=== PATIENT | female | born 1960 | race Caucasian/White ===

== ENCOUNTER 2021-04-10 09:05 | Emergency (ER) | payer OTHER, SELFPAY ==
--- NOTE | ~2021-04-10 | CT_ITS ---
EXAMINATION: CT chest abdomen pelvis w con DATE: 04/10/2021 11:47 INDICATION: Chest pain. Blood in stool. TECHNIQUE: Computed tomography (CT) of the chest, abdomen, and pelvis was performed with 100 mL Omnip aque 350 intravenous contrast. Automated exposure control and iterative reconstruction technique were employed. The dose-length product was 548.44 mGy-cm. COMPARISON: CT abdomen 08/26/2016 FINDINGS: CHEST CT: The lungs demonstrate minimal atelectasis. No pleural effusion. The heart size is normal. There are c oronary artery calcifications. No pericardial effusion. There is wall thickening of the distal esopha trista. There is a small sliding hiatal hernia. There is mild thoracic spondylosis. ABDOMEN/PELVIS CT: There is diffuse hepatic steatosis. There are cysts in the liver measuring up to 5 mm. The gallbladde r, spleen, pancreas, adrenal glands, and kidneys are normal. There is prominent fat in the inguinal c anals that may be hernias. There are no dilated loops of bowel. The appendix is normal. There are no pathologically enlarged lymph nodes. There is no free intraperitoneal fluid. There is mild lumbar spo ndylosis. IMPRESSION: 1. Small sliding hiatal hernia. 2. Wall thickening of the distal esophagus, likely esophagitis. 3. Diffuse hepatic steatosis. 4. Prominent fat in the inguinal canals that may be hernias. Reviewed, dictated and finalized at location A.
[2021-04-10 09:10] VITALS: BP 117/67; PULSE 90; RESP 16; TEMP 36.7; O2SAT 100
--- NOTE | 2021-04-10 09:40 | ECG_ITS ---
Measurements Intervals [place] Rate: 91 P: 56 [place]: 154 QRS: 48 QRSD: 80 T: 6 QT: 359 QTc: 443 Interpretive Statements SINUS RHYTHM NONSPECIFIC ST & T-WAVE ABNORMALITY- INFERIOR LEADS BASELINE WANDER- I, III, AVR, AVL, AVF BORDERLINE ECG Electronically Signed On 04-10-2021 13:27:12 CDT by Nael Montoya D.O.
[2021-04-10 09:57] LABS: Basophils Absolute Auto 0.01 K/mm3 (0.00-0.10); Basophils Percent Auto 0.2 % (0.0-1.0); Eosinophils Percent Auto 1.8 % (1.0-6.0); Hemoglobin 7.6 g/dL (12.0-15.0); Immature Granulocyte Absolute 0.02 K/mm3 (0.00-0.00); Immature Granulocyte Percent A 0.4 % (0.0-0.0); Lymphocytes Absolute Auto 2.19 K/mm3 (1.10-4.50); Lymphocytes Percent Auto 40.3 % (18.0-42.0); Mean Corpuscular Hemoglobin 30.3 pg (27.0-31.0); Mean Corpuscular Volume 91.6 fL (78.0-102.0); Mean Platelet Volume 8.3 fl (9.2-11.8); Monocytes Absolute Auto 0.27 K/mm3 (0.10-0.90); Neutrophils Absolute Auto 2.9 K/mm3 (1.7-7.2); Neutrophils Percent Auto 52.3 % (50.0-70.0); Platelet Count Result 208 K/mm3 (150-420); Red Blood Count 2.51 M/mm3 (4.20-5.40); White Blood Count 5.4 K/mm3 (4.8-10.8)
[2021-04-10 10:11] LABS: D Dimer 0.37 mg/L (0.19-0.50)
[2021-04-10 10:13] VITALS: BP 94/66; PULSE 88; O2SAT 97
[2021-04-10 10:22] LABS: Alanine Aminotransferase 23 U/L (14-59); Albumin Level 3.1 g/dL (3.4-5.0); Alkaline Phosphatase 47 U/L (46-116); Anion Gap 12 mmol/L (8-16); Aspartate Amino Transferase 14 U/L (15-37); Bilirubin,Total 0.2 mg/dL (0.00-1.00); Blood Urea Nitrogen 38 mg/dL (7-18); Carbon Dioxide 23 mmol/L (21-32); Chloride 104 mmol/L (98-108); Estimated Glomerular Filt Rate > 60; Glucose 134 mg/dL (70-99); Osmolality Calculated 299 mOsm/kg (285-295); Potassium 3.7 mmol/L (3.5-5.1); Sodium 139 mmol/L (136-145); Thyroid Stimulating Hormone 1.37 uIU/mL (0.36-3.74); Total Protein 5.9 g/dL (6.4-8.2)
[2021-04-10 10:23] LABS: Troponin I < 4.0 ng/L (0.00-60.4)
[2021-04-10 10:33] LABS: Occult Blood Positive (Negative)
[2021-04-10] MEDS: PANTOPRAZOLE SODIUM IV 40 MG VIAL IV PUSH (11:30)
[2021-04-10 11:33] LABS: Partial Thromboplastin Time 23.9 SEC (23.90-30.70); Prothrombin Time 10.3 Seconds (9.50-12.10)
[2021-04-10 11:49] VITALS: BP 121/47; PULSE 98; O2SAT 100
--- NOTE | 2021-04-10 12:39 | PC.NURSE ---
[facility] CALLED FOR POSSIBLE TRANSFER
[2021-04-10] MEDS: LACTATED RINGERS 1,000 ML 500 ML IV CONT (12:48)
--- NOTE | 2021-04-10 12:58 | ED.DIZZY ---
HPI - Dizziness General Chief Complaint: Dizziness Stated Complaint: DIZZY Time Seen by Provider: 04/10/21 09:15 Source: patient Mode of arrival: ambulatory Limitations: no limitations History of Present Illness HPI Narrative: Patient comes in complaining of presyncope. She has felt weak and presyncopal for some time, at least the last week, and had an episode today which was more severe presyncopal episode. She comes in now with these complaints. She denies any fever or chills. She has had complaints of dark stool. MD elicited complaint: lightheadedness and near syncope Pertinent past history: GI bleed Onset (ago): minute(s) Timing: sudden onset Severity: severe Description: lightheadedness, off-balance and near-syncope Context: exertion and at rest History of similar symptoms: Yes Exacerbating factors: movement/ambulation and change in body position Relieving factors: rest Associated symptoms: denies other symptoms Related Data Home Medications Medication Instructions Recorded Confirmed lisinopril-hydrochlorothiazide 1 tablet PO DAILY 04/10/21 04/10/21 metformin 500 mg PO BID 04/10/21 04/10/21 oxycodone 5 mg PO PRN 04/10/21 04/10/21 oxycodone myristate [Xtampza ER] 13.5 mg PO BID 04/10/21 04/10/21 pregabalin 200 mg PO BID 04/10/21 04/10/21 Allergies Allergy/AdvReac Type Severity Reaction Status Date / Time amoxicillin Allergy Mild RASH Verified 04/10/21 16:13 Penicillins Allergy Unknown Rash Verified 04/10/21 16:13 Review of Systems Constitutional: Constitutional: Reports no additional constitutional complaints Eyes: Eyes: Reports no additional eye complaints ENT: Reports system reviewed and no additional complaints, except as documented Cardiovascular: Cardiovascular: Reports no additional cardiovascular complaints Respiratory: Respiratory: Reports no additional respiratory complaints Gastrointestinal: Gastrointestinal: Reports no additional gastrointestinal complaints Genitourinary: Genitourinary: Reports no additional female genitourinary complaints Musculoskeletal: Musculoskeletal: Reports no additional musculoskeletal complaints Integumentary/Breasts: Skin/Breast: Reports system reviewed and no additional complaints, except as docu Neurologic: Reports system reviewed and no additional complaints, except as documented Psychiatric: Psychiatric: Reports anxiety Endocrine: Endocrine: Reports no additional endocrine complaints Hematologic/Lymphatic: Hematologic/Lymphatic: Reports no additional hematologic/lymphatic complaints Allergic/Immunologic: Allergic/Immunologic: Reports no additional allergic/immunologic complaints PMFSH Past Medical History Medical History Chronic jaw pain Diabetic peripheral neuropathy Hypertension Type 2 diabetes mellitus Surgical History Surgical History History of 2 sections History of mandibular surgery Left job replacement surgery. Family History Family History Son Type 1 diabetes Mother Coronary artery disease Father Parkinsons disease Pacemaker Social History Social History Social History: The patient is and lives in her own home in [place]. 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 Smokes approximately 1/2 a pack of cigarettes a day. She drinks alcohol very rarely and in moderation. No illicit substance use. She designates her daughter, Mona Dumont, as her surrogate decision maker and she wishes to be a full code. Smoking packs per day: 0.5 Smoking cigarettes per day: 10.0 Years smoked: 45 Smoking pack-years: 22.50 Smoking status: Current every day smoker Exam Const: General: alert Orientation/consciousness: patient oriented x3 HENMT: Head: normal to inspection Ears: TM's normal bilaterally Ge
[2021-04-10 13:27] VITALS: BP 110/59; PULSE 85; RESP 14; O2SAT 98
[2021-04-10 13:35] LABS: Troponin I < 4.0 ng/L (0.00-60.4)
== END 2021-04-10 13:57 | disposition short-term general hospital (02) ==
LOC: CHSED 09:10
PROVIDERS: Emergency Provider Emergency Medicine; PCP Nurse Practitioner Adult Health
DX: K92.2 Gastrointestinal hemorrhage, unspecified (principal)
CPT/HCPCS: 36415; 71260; 74177; 80053; 82272; 84443; 84484; 85025; 85380; 85610; 85730; 93005; 96361; 96374; 99285; C9113; J7120; Q9967

== ENCOUNTER 2021-04-10 15:03 | Inpatient (IN) | payer OTHER, SELFPAY ==
[2021-04-10] VITALS (14 sets, daily range): BP systolic 114–130; BP diastolic 55–68; PULSE 76–100; RESP 12–20; TEMP 36.1–37.1; O2SAT 96–100; BMI 24.3
--- NOTE | 2021-04-10 15:00 | ADMGEN ---
This patient, Baylee Lacey, was admitted to IMU Room 214-01. Patient/family oriented to hospital policies and general routines including ID bracelet, bed and alarms, visiting hours, pain management, procedures, bathroom and other care routines, personal items, smoking policy, room service/diet, and visiting hours. Information on how to activate the Rapid Response Team has been discussed. Patient/Family are encouraged to report perceived risks to care and to ask questions if they do not understand what they are told or what they should do.
--- NOTE | 2021-04-10 15:30 | PM.IMHP ---
H&P: HPI History of Present Illness Date/Time: 04/10/21 15:30 Chief Complaint: GI bleed. Narrative: This is a very pleasant 60-year-old female smoker with history of GERD, gastritis and duodenitis, hypertension, and type 2 diabetes mellitus who is being directly admitted to the IMU from the emergency department at the [facility] for further treatment evaluation of a reported GI bleed. She has not felt well for approximately 1 week with symptoms including fatigue, dyspnea on exertion, and lightheadedness. Over the weekend she noticed that her stools were much darker than usual and she has past several episodes of dark, loose stools daily since that time. In addition to dyspnea on exertion, she has had discomfort in her jaw and while she does have chronic pain in her jaw from previous jaw replacement surgery, this pain is different and is more aching in nature. It seems to be present only when up ambulating and goes away with rest. In any event, she was found to have Hemoccult-positive stools and a decrease in hemoglobin from baseline on arrival to the outside hospital emergency department and she is being transferred in the setting for consultation with a special service representative. As above she has a history of GERD however she is not taking a PPI daily as her insurance company quit pain for it. She will take omeprazole approximately 2 to 3 times per week depending on how significant her symptoms become. She takes Excedrin, which contains aspirin, perhaps 2 to 3 times per month but does not take any other NSAIDs. No significant alcohol or caffeine intake. She also reports increase in stress recently. No current chest pain or shortness of breath. No nausea or vomiting. Review of Systems Review of Systems: Narrative: Twelve systems were reviewed with pertinent positives and negatives as per HPI. Weight has remained stable. No cold or flu symptoms. She denies exposure to those positive for COVID-19. No history of coronary artery disease. She has never had a stress test or cardiac catheterization. No pleuritic pain. She denies nausea, vomiting, and sweats. Except as documented, all other systems were reviewed and are negative. [facility] Past Medical History Medical History (Updated 04/10/21 @ 21:48 by Jeannie Camarillo PA-C) Chronic jaw pain Diabetic peripheral neuropathy Hypertension Type 2 diabetes mellitus Surgical History Surgical History (Updated 04/10/21 @ 21:42 by Jeannie Camarillo PA-C) History of 2 sections History of mandibular surgery Left job replacement surgery. Family History Family History (Updated 04/10/21 @ 21:43 by Jeannie Camarillo PA-C) Son Type 1 diabetes Mother Coronary artery disease Father Parkinsons disease Pacemaker Social History Social History (Updated 04/10/21 @ 21:44 by Jeannie Camarillo PA-C) Social History: The patient is and lives in her own home in [place]. 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 Smokes approximately 1/2 a pack of cigarettes a day. She drinks alcohol very rarely and in moderation. No illicit substance use. She designates her daughter, Mona Dumont, as her surrogate decision maker and she wishes to be a full code. Smoking packs per day: 0.5 Smoking cigarettes per day: 10.0 Years smoked: 45 Smoking pack-years: 22.50 Smoking status: Current every day smoker Meds Home Medications and Allergies Home Medications Medication Instructions Recorded Confirmed Type lisinopril-hydrochlorothiazide 1 tablet PO DAILY 04/10/21 04/10/21 History metformin 500 mg PO BID 04/10/21 04/10/21 History oxycodone 5 mg PO DAILY PRN 04/10/21 04/10/21 History oxycodone myristate [Xtampza ER] 13.5 mg PO BID 04/10/21 04/10/21 History pregabalin 200 mg PO BID 04/10/21 04/10/21 History Allergies Allergy/AdvReac Type Severity Reaction Status Date / Time amoxicillin Allergy Mild RASH Verified 04/10/21 16:13 Penicillins Allergy Un
--- NOTE | 2021-04-10 16:06 | WPDGICN ---
Assessment and Plan Assessment and plan (1) GIB (gastrointestinal bleeding): Code(s): K92.2 - Gastrointestinal hemorrhage, unspecified Status: Acute Assessment and Plan: most likely upper GIB, also abnormal CT scan esophagus will proceed with egd tomorrow continue with iv protonix bid (2) Acute blood loss anemia: Code(s): D62 - Acute posthemorrhagic anemia Status: Acute Assessment and Plan: continue to monitor and check h/h transfuse if hb<7 (3) Orthostatic hypotension: Code(s): I95.1 - Orthostatic hypotension Status: Acute Assessment and Plan: probably from gib, supportive care (4) Melena: Code(s): K92.1 - Melena Status: Acute Assessment and Plan: egd in am (5) Hypertension: Code(s): I10 - Essential (primary) hypertension Status: Acute Assessment and Plan: hold her BP meds GI Consult Note Consult date/time: 04/10/21 16:06 Reason for consult: melena HPI: Baylee Lacey is a 60 year old female she has history of HTN, chronic pain in jaw after surgery on Xtampxa ER who is here feeling weak and feeling like passing out after getting up for last week which progressively has gotten worse, also last 2 days noted dark tarry stools. She says that several years ago had EGD when had abdominal pain, she was told that had ulcers and briefly used PPI until her insurance did not cover it anymore. She denies taking nsaid's, only aspirin maybe twice a month for headache. She never had a colonoscopy. Hb 7.6 (2 years ago 13), BUN 38, normal creatinine. CT scan a/p reviewed that showed small sliding hiatal hernia, wall thickening of the distal esophagus, likely esophagitis, diffuse hepatic steatosis. Review of Systems Constitutional: Constitutional: Reports fatigue Eyes: Eyes: Denies blurry vision ENT: Reports Normal hearing present Cardiovascular: Cardiovascular: Denies chest pain Respiratory: Respiratory: Denies dyspnea Gastrointestinal: Gastrointestinal: Denies abdominal pain and Reports melena Genitourinary: Genitourinary: Denies hematuria Musculoskeletal: Musculoskeletal: Denies myalgias Integumentary/Breasts: Skin/Breast: Denies dry skin Neurologic: Comments: presyncope Psychiatric: Psychiatric: Reports no additional psychiatric complaints [facility] Past Medical History Medical History (Updated 04/10/21 @ 16:11 by Sergio Epstein MD) Acute blood loss anemia GIB (gastrointestinal bleeding) Hypertension Melena Orthostatic hypotension Meds Home Medications and Allergies Home Medications Medication Instructions Recorded Confirmed Type lisinopril-hydrochlorothiazide 2 tablet PO DAILY 04/10/21 04/10/21 History metformin 500 mg PO BID 04/10/21 04/10/21 History oxycodone 5 mg PO DAILY PRN 04/10/21 04/10/21 History oxycodone myristate [Xtampza ER] 13.5 mg PO BID 04/10/21 04/10/21 History pregabalin 200 mg PO BID 04/10/21 04/10/21 History Allergies Allergy/AdvReac Type Severity Reaction Status Date / Time amoxicillin Allergy Mild RASH Verified 08/13/17 15:26 Penicillins Allergy Mild Verified 08/13/17 15:26 Exam Const: General: comfortable and no acute distress HENMT: General nose exam: Normal nares present Eyes: General: appearance normal, both eyes and all related structures Neck: Neck: supple Resp: Effort & Inspection: normal respiratory effort Cardio: Rate: regular rate GI: Inspection: non-distended GI Palp: Yes Soft to palpation, No Tenderness to palpation present (GI) and No Guarding due to palpation present (GI) Auscultation: normal bowel sounds Skin: Other: pale Neuro: Speech: normal speech Motor exam (neuro): Normal motor muscle tone present throughout Extrem: General: normal to inspection Psych: Mental Status: mental status grossly normal
[2021-04-10 16:21] LABS: Hematocrit 21.1 % (37.0-47.0)
[2021-04-10 16:30] LABS: Magnesium 1.9 mg/dL (1.6-2.3)
[2021-04-10 16:32] LABS: Hemoglobin 6.9 g/dL (12.0-15.0)
[2021-04-10 17:22] LABS: Glucose Point of Care 121 mg/dl (65-105)
[2021-04-10] MEDS: SODIUM CHLORIDE 0.9% IV 250 ML 30 ML IV CONT (17:45)
[2021-04-10 18:32] LABS: Hemoglobin A1C 5.2 % (<5.7)
[2021-04-10 19:43] LABS: Hematocrit 22.3 % (37.0-47.0); Hemoglobin 7.4 g/dL (12.0-15.0)
[2021-04-10] MEDS: PANTOPRAZOLE SODIUM IV 40 MG VIAL IV PUSH (20:29)
--- NOTE | 2021-04-10 21:52 | ECG_ITS ---
Measurements Intervals [place] Rate: 76 P: 63 [place]: 180 QRS: 48 QRSD: 91 T: 47 QT: 380 QTc: 428 Interpretive Statements SINUS RHYTHM EARLY PRECORDIAL R/S TRANSITION BASELINE ARTIFACT- I, II, III, AVR BORDERLINE ECG Electronically Signed On 04-11-2021 8:46:09 CDT by Nael Montoya D.O.
[2021-04-11] VITALS (12 sets, daily range): BP systolic 119–135; BP diastolic 64–73; PULSE 68–82; RESP 14–22; TEMP 36.1–36.7; O2SAT 99–100
[2021-04-11 04:54] LABS: Hematocrit 27.1 % (37.0-47.0); Hemoglobin 9.1 g/dL (12.0-15.0); Mean Corpuscular HGB Conc 33.6 g/dl (32-36); Mean Corpuscular Hemoglobin 27.7 pg (26-34); Mean Corpuscular Volume 82.6 fl (80-100); Mean Platelet Volume 8.6 fl (7.4-10.4); Platelet Count Result 204 k/mm3 (150-375); Red Blood Count 3.28 M/mm3 (4.2-5.4); Red Cell Distribution Width 17.4 % (11.5-14.5); White Blood Count 5.3 K/mm3 (4.5-10.0)
[2021-04-11 05:11] LABS: Anion Gap 8 mmol/L (8-16); Blood Urea Nitrogen 13 mg/dL (7-17); Calcium 8.9 mg/dL (8.4-10.2); Carbon Dioxide 21 mmol/L (22-30); Chloride 109 mmol/L (98-107); Estimated CRCL calculation 77 ml/min; Estimated Glomerular Filt Rate > 60; Glucose 124 mg/dL (65-105); Magnesium 1.9 mg/dL (1.6-2.3); Potassium 3.9 mmol/L (3.4-5.0); Sodium 138 mmol/L (137-145)
[2021-04-11 08:44] LABS: Hematocrit 27.9 % (37.0-47.0); Hemoglobin 9.4 g/dL (12.0-15.0)
[2021-04-11] MEDS: oxyCODONE HCL (*CRX) 10 MG TAB SR 12HR PO (09:28)
[2021-04-11] MEDS: PANTOPRAZOLE SODIUM IV 40 MG VIAL IV PUSH (09:29)
--- NOTE | 2021-04-11 12:23 | PM.IMPN ---
Progress Note: A&P Assessment and Plan (1) Acute upper GI bleed: Code(s): K92.2 - Gastrointestinal hemorrhage, unspecified Status: Acute (2) Gastritis and duodenitis: Code(s): K29.90 - Gastroduodenitis, unspecified, without bleeding Status: Acute (3) GERD (gastroesophageal reflux disease): Code(s): K21.9 - Gastro-esophageal reflux disease without esophagitis Status: Acute (4) Chronic jaw pain: Code(s): R68.84 - Jaw pain; G89.29 - Other chronic pain Status: Acute (5) Jaw pain: Code(s): R68.84 - Jaw pain Status: Acute (6) Diabetic peripheral neuropathy: Code(s): E11.42 - Type 2 diabetes mellitus with diabetic polyneuropathy Status: Acute (7) Type 2 diabetes mellitus: Code(s): E11.9 - Type 2 diabetes mellitus without complications Status: Acute (8) Hypertension: Code(s): I10 - Essential (primary) hypertension Status: Acute (9) Melena: Code(s): K92.1 - Melena Status: Acute (10) Orthostatic hypotension: Code(s): I95.1 - Orthostatic hypotension Status: Acute (11) Tobacco abuse: Code(s): Z72.0 - Tobacco use Status: Acute Additional Plan Patient admitted for acute upper GI bleed and acute blood loss anemia. Patient has received 1 unit of PRBCs and her hemoglobin remained stable greater than 9. She is scheduled for EGD today. Continue current care May shower Advance diet when cleared by GI NS at 75 cc/hour Transfer to medical-surgical floor Dispo home after cleared by GI Time Spent With Patient Time with patient: 25 - 35 minutes Subjective Date/time seen: 04/11/21 12:23 Patient doing okay has no physical complaints at the time of my interview. She does however requested be able to shower and also eat a soon as possible. Patient is advised that she can eat as soon as she is cleared by GI. Also, now that her hemoglobin is greater than 9 she should be able to shower safely with assistance. Her mother is bedside all questions are answered. Exam Narrative: Exam Narrative: General: Well-developed female sitting up in bed no distress. Weight: 66.3 kilograms. BMI: 24.3. HEENT: Wearing glasses. EOMI. Sclerae anicteric. Conjunctiva are pale. Oral mucosa moist. Neck: Supple. No JVD. Respiratory: Lungs are clear to auscultation bilaterally. Cardiovascular: Regular rate and rhythm with S1-S2. Gastrointestinal: Abdomen is soft, nontender, and nondistended with positive bowel sounds. Skin: Warm and dry. Generalized pallor. Extremities: No cyanosis, clubbing, or edema. Radial and pedal pulses intact. Neurological: Alert. Cranial nerves 2-12 are grossly intact. No gross focal deficits to casual conversation. Psychiatric: Pleasant and cooperative with normal mood and affect. Judgment and insight intact. Objective Data Vital Signs Vital Signs: Vital Signs - 24 hr 04/10/21 15:00 04/10/21 16:00 04/10/21 18:00 Temperature 98.7 F Pulse Rate 82 93 95 Respiratory Rate 12 Blood Pressure 124/55 L Pulse Oximetry 100 04/10/21 18:35 04/10/21 18:50 04/10/21 19:50 Temperature 98.0 F 97.7 F 98.2 F Pulse Rate 84 85 79 Respiratory Rate 16 16 16 Blood Pressure 130/68 120/59 L 124/60 Pulse Oximetry 98 96 100 04/10/21 20:00 04/10/21 20:50 04/10/21 21:12 Temperature 98.2 F 98 F Pulse Rate 79 79 81 Respiratory Rate 16 18 Blood Pressure 117/56 L 114/58 L Pulse Oximetry 100 97 04/10/21 21:28 04/10/21 21:30 04/10/21 22:00 Temperature 97.6 F 97.0 F L Pulse Rate 100 100 77 Respiratory Rate 18 18 Blood Pressure 114/68 114/68 Pulse Oximetry 97 97 04/10/21 22:28 04/10/21 22:53 04/11/21 00:00 Temperature 98.2 F 98.0 F Pulse Rate 77 76 68 Respiratory Rate 18 20 18 Blood Pressure 122/60 121/61 Pulse Oximetry 100 99 04/11/21 02:00 04/11/21 04:00 04/11/21 06:00 Temperature 98.1 F Pulse Rate 82 73 70 Respiratory Rate 16 Blood Pressure 1
--- NOTE | 2021-04-11 12:46 | PC.NURSE ---
To GI lab for EGD procedure via stretcher accompanied by RN
[2021-04-11 12:59] LABS: Glucose Point of Care 130 mg/dl (65-105)
[2021-04-11] MEDS: LACTATED RINGERS 1,000 ML 150 ML IV CONT (13:02)
--- NOTE | 2021-04-11 13:15 | WPDANESEPPF ---
Anes - Initial Pre Proc Eval Procedure: Operation Date: 04/11/21 14:00 Proposed Procedures p Esophagogastroduodenoscopy - Sergio Epstein MD Date/Time: 04/11/21 13:15 Surgeon: Dash Salcido MD Pre Op Diagnosis: ugi bleed Patient Data Age: 60 Gender: F Height: 5 ft 5 in Weight: 65.1 kg Last Vital Signs Temp 96.9 F L 04/11/21 12:58 Pulse 68 04/11/21 12:58 Resp 16 04/11/21 12:58 BP 132/71 04/11/21 12:58 Pulse Ox 100 04/11/21 12:58 Allergies Allergy/AdvReac Type Severity Reaction Status Date / Time amoxicillin Allergy Mild RASH Verified 04/10/21 16:13 Penicillins Allergy Unknown Rash Verified 04/10/21 16:13 Home Medications Medication Instructions Recorded Confirmed Type lisinopril-hydrochlorothiazide 1 tablet PO DAILY 04/10/21 04/10/21 History metformin 500 mg PO BID 04/10/21 04/10/21 History oxycodone 5 mg PO Q6H PRN 04/10/21 04/11/21 History oxycodone myristate [Xtampza ER] 13.5 mg PO BID 04/10/21 04/10/21 History pregabalin 200 mg PO BID 04/10/21 04/10/21 History Laboratory Tests 04/10/21 04/10/21 04/10/21 16:11 16:11 16:11 WBC RBC Hgb 6.9 g/dL L* g/dL (12.0-15.0) Hct 21.1 % L % (37.0-47.0) MCV MCH MCHC RDW Plt Count MPV Sodium Potassium Chloride Carbon Dioxide Anion Gap BUN Creatinine Estim Creat Clear Calc Estimated GFR Glucose POC Capillary Glucose Hemoglobin A1c 5.2 % % (<5.7) Calcium Magnesium TSH (Reflex) Blood Type O Positive Antibody Screen Negative Crossmatch See Detail 04/10/21 04/10/21 04/10/21 16:11 16:11 16:54 WBC RBC Hgb Hct MCV MCH MCHC RDW Plt Count MPV Sodium Potassium Chloride Carbon Dioxide Anion Gap BUN Creatinine Estim Creat Clear Calc Estimated GFR Glucose POC Capillary Glucose 121 mg/dl H mg/dl (65-105) Hemoglobin A1c Calcium Magnesium 1.9 mg/dL mg/dL (1.6-2.3) TSH (Reflex) 2.830 uIU/mL uIU/mL (0.465-4.68) Blood Type Antibody Screen Crossmatch 04/10/21 04/11/21 04/11/21 19:36 04:33 04:33 WBC 5.3 K/mm3 K/mm3 (4.5-10.0) RBC 3.28 M/mm3 L M/mm3 (4.2-5.4) Hgb 7.4 g/dL L g/dL 9.1 g/dL L g/dL (12.0-15.0) (12.0-15.0) Hct 22.3 % L % 27.1 % L % (37.0-47.0) (37.0-47.0) MCV 82.6 fl fl (80-100) MCH 27.7 pg pg (26-34) MCHC 33.6 g/dl g/dl (32-36) RDW 17.4 % H % (11.5-14.5) Plt Count 204 k/mm3 k/mm3 (150-375) MPV 8.6 fl fl (7.4-10.4) Sodium 138 mmol/L mmol/L (137-145) Potassium 3.9 mmol/L mmol/L (3.4-5.0) Chloride 109 mmol/L H mmol/L (98-107) Carbon Dioxide 21 mmol/L L mmol/L (22-30) Anion Gap 8 mmol/L mmol/L (8-16) BUN 13 mg/dL mg/dL (7-17) Creatinine 0.60 mg/dL L mg/dL (0.7-1.0) Estim Creat Clear Calc 77 ml/min ml/min Estimated GFR > 60 (59 - ) Glucose 124 mg/dL H mg/dL (65-105) POC Capillary Glucose Hemoglobin A1c Calcium 8.9 mg/dL mg/dL (8.4-10.2) Magnesium 1.9 mg/dL mg/dL (1.6-2.3) TSH (Reflex) Blood Type Antibody Screen Crossmatch 04/11/21 04/11/21 08:34 12:57 WBC RBC Hgb 9.4 g/dL L g/dL
[2021-04-11] MEDS: BENZOCAINE (*SP) 60 ML SPRAY CAN (HURRICAINE) 1 SPRAY MUCOUS MEM (13:35)
--- NOTE | 2021-04-11 14:26 | PC.NURSE ---
Returned to room -post egd procedure-a/o x3- wanting to eat- denies pain- or discomfort in throat-
--- NOTE | 2021-04-11 16:23 | PC.NURSE ---
[id number]-pt wanting to go home- spoke with Dr. Delgadillo about pt concerns. Dr. Delgadillo wants pt to stay 1 more day to monitor HH / bleeding. Pt informed - pt stated she cannot stay one more day; pt wants to sign out AMA- Dr. Delgadillo updated. pt signed out AMA and discharged home-
--- NOTE | 2021-04-12 06:09 | PM.DS ---
DS: Admitting Diagnosis Admitting Diagnosis Admitting Diagnosis: 1) Acute upper GI bleed: Code(s): K92.2 - Gastrointestinal hemorrhage, unspecified Status: Acute (2) Gastritis and duodenitis: Code(s): K29.90 - Gastroduodenitis, unspecified, without bleeding Status: Acute (3) GERD (gastroesophageal reflux disease): Code(s): K21.9 - Gastro-esophageal reflux disease without esophagitis Status: Acute (4) Chronic jaw pain: Code(s): R68.84 - Jaw pain; G89.29 - Other chronic pain Status: Acute (5) Jaw pain: Code(s): R68.84 - Jaw pain Status: Acute (6) Diabetic peripheral neuropathy: Code(s): E11.42 - Type 2 diabetes mellitus with diabetic polyneuropathy Status: Acute (7) Type 2 diabetes mellitus: Code(s): E11.9 - Type 2 diabetes mellitus without complications Status: Acute (8) Hypertension: Code(s): I10 - Essential (primary) hypertension Status: Acute (9) Melena: Code(s): K92.1 - Melena Status: Acute (10) Orthostatic hypotension: Code(s): I95.1 - Orthostatic hypotension Status: Acute (11) Tobacco abuse: Code(s): Z72.0 - Tobacco use Status: Acute DS: Discharge Diagnosis Discharge Diagnosis (1) Tobacco abuse: Code(s): Z72.0 - Tobacco use Status: Acute (2) Gastritis and duodenitis: Code(s): K29.90 - Gastroduodenitis, unspecified, without bleeding Status: Acute (3) GERD (gastroesophageal reflux disease): Code(s): K21.9 - Gastro-esophageal reflux disease without esophagitis Status: Acute (4) Jaw pain: Code(s): R68.84 - Jaw pain Status: Acute (5) Chronic jaw pain: Code(s): R68.84 - Jaw pain; G89.29 - Other chronic pain Status: Acute (6) Diabetic peripheral neuropathy: Code(s): E11.42 - Type 2 diabetes mellitus with diabetic polyneuropathy Status: Acute (7) Type 2 diabetes mellitus: Code(s): E11.9 - Type 2 diabetes mellitus without complications Status: Acute (8) Hypertension: Code(s): I10 - Essential (primary) hypertension Status: Acute (9) Melena: Code(s): K92.1 - Melena Status: Acute (10) Orthostatic hypotension: Code(s): I95.1 - Orthostatic hypotension Status: Acute (11) Acute blood loss anemia: Code(s): D62 - Acute posthemorrhagic anemia Status: Acute (12) GIB (gastrointestinal bleeding): Code(s): K92.2 - Gastrointestinal hemorrhage, unspecified Status: Acute DS: Summary Hospital Course Reason for hospitalization: symptomatic anemia Hospital Course: Patient admitted for acute upper GI bleed and acute blood loss anemia. Patient has received 1 unit of PRBCs and her hemoglobin remained stable greater than 9. She underwent EGD which showed gastritis and duodenitis. Postprocedure her diet was advanced as tolerated and she did very well. Unfortunately patient did not want to stay for repeat hemoglobin and left against medical advice. Status at Discharge Functional status at discharge: independent ambulation Time Spent with Patient Time attestation: Total time spent providing and/or coordinating discharge services: Exam Narrative: Exam Narrative: General: Well-developed female sitting up in bed no distress. HEENT: Wearing glasses. EOMI. Sclerae anicteric. Conjunctiva are pale. Oral mucosa moist. Neck: Supple. No JVD. Respiratory: Lungs are clear to auscultation bilaterally. Cardiovascular: Regular rate and rhythm with S1-S2. Gastrointestinal: Abdomen is soft, nontender, and nondistended with positive bowel sounds. Skin: Warm and dry. Generalized pallor. Extremities: No cyanosis, clubbing, or edema. Radial and pedal pulses intact. Neurological: Alert. Cranial nerves 2-12 are grossly intact. No gross focal deficits to casual conversation. Psychiatric: Pleasant and cooperative with normal mood and affect.
== END 2021-04-11 16:24 | disposition left against medical advice (07) | DRG 378 ==
PROVIDERS: Internal Medicine Gastroenterology; Physician Assistant; Admitting Provider Internal Medicine; PCP Nurse Practitioner Adult Health; Visit Provider Hospitalist
PROC: 0DJ08ZZ Inspection of Upper Intestinal Tract, Via Natural or Artificial Opening Endoscopic (ICD-10-PCS; CPT 43235; principal; 2021-04-11 14:00)
DX: K29.91 Gastroduodenitis, unspecified, with bleeding (principal); D62 Acute posthemorrhagic anemia; K21.01 Gastro-esophageal reflux disease with esophagitis, with bleeding; K26.4 Chronic or unspecified duodenal ulcer with hemorrhage; K22.2 Esophageal obstruction; K44.9 Diaphragmatic hernia without obstruction or gangrene; I10 Essential (primary) hypertension; I95.1 Orthostatic hypotension; F17.210 Nicotine dependence, cigarettes, uncomplicated; E11.42 Type 2 diabetes mellitus with diabetic polyneuropathy; R68.84 Jaw pain; G89.29 Other chronic pain; Z79.84 Long term (current) use of oral hypoglycemic drugs; Z79.899 Other long term (current) drug therapy; Z88.0 Allergy status to penicillin
CPT/HCPCS: 36415; 36430; 80048; 82948; 83036; 83735; 84443; 85014; 85018; 85027; 86850; 86900; 86901; 86923; 87081; 88305; 93005; A9270; C1726; C9113; J0171; J2704; J7050; J7120; P9016

== ENCOUNTER → 2021-04-27 08:12 | Outpatient (CLI) | payer OTHER, SELFPAY ==
--- NOTE | ~2021-04-27 | US_ITS ---
US abdomen complete EXAMINATION: US Abdomen Complete INDICATION: Diarrhea. History of ulcers. PROCEDURE: Realtime High Resolution abdomen ultrasound. COMPARISON: No prior studies for comparison FINDINGS: Gallbladder within normal limits. No gallstones, pericholecystic fluid, gallbladder wall t hickening or biliary dilatation. Common bile duct measures 3 mm. Liver echotexture is increased, consistent with fatty infiltration.. Pancreas within normal limits. Pancreatic tail is obscured by bowel gas. Spleen is unremarkeable. Renal echotexture is within norm al limits bilaterally without hydronephrosis, contour deforming mass or renal stone. Right kidney jaclyn sures 10.8 cm. Left kidney measures 12.5 cm. Visualized aspects of the aorta and IVC are within normal limits. Portal vein is patent. No sonograph ic Macedo's sign indicated by the technologist. IMPRESSION: 1: Hepatic steatosis. Reviewed, dictated and finalized at location A. IMPRESSION: 1: Hepatic steatosis.
== END ==
PROVIDERS: PCP Physician Assistant; Visit Provider Physician Assistant
DX: R19.7 Diarrhea, unspecified (principal); K76.0 Fatty (change of) liver, not elsewhere classified
CPT/HCPCS: 76700

== ENCOUNTER → 2021-05-15 16:24 | Outpatient (CLI) | payer OTHER, SELFPAY ==
--- NOTE | ~2021-05-15 | MM_ITS ---
EXAMINATION: MM screening ming BI w ky HISTORY: Screening mammogram, family history of breast cancer in her mother. TECHNIQUE: Craniocaudal and mediolateral oblique 3-D tomosynthesis images were obtained and synthetic 2-D images were generated. CAD analysis was submitted and interpreted. COMPARISON: 09/20/2013, 09/02/2013 BREAST PARENCHYMAL COMPOSITION: The breasts are heterogeneously dense, which may obscure small masses . FINDINGS: There is no evidence of suspicious mass, calcification, or architectural distortion to sugg est malignancy in either breast. There has been no suspicious interval change. IMPRESSION: 1. No mammographic evidence of malignancy. 2. Recommend routine screening mammography in one year. BI-RADS Category 1: Negative Reviewed, dictated and finalized at location A.
== END ==
PROVIDERS: PCP Physician Assistant; Visit Provider Physician Assistant
DX: Z12.31 Encounter for screening mammogram for malignant neoplasm of breast (principal)
CPT/HCPCS: 77063; 77067

== ENCOUNTER 2021-06-15 01:42 | Day surgery (SDC) | payer OTHER, SELFPAY ==
[2021-06-05 11:48] VITALS: BMI 24.9
[2021-06-15 07:48] VITALS: BP 124/79; PULSE 77; RESP 16; TEMP 36.1; O2SAT 99; BMI 26.2
[2021-06-15] MEDS: LACTATED RINGERS 1,000 ML 150 ML IV CONT (07:52)
[2021-06-15 08:03] LABS: Glucose Point of Care 104 mg/dl (65-105)
--- NOTE | 2021-06-15 08:05 | WPDANESEPPF ---
Anes - Initial Pre Proc Eval Procedure: Operation Date: 06/15/21 08:30 Proposed Procedures p Esophagogastroduodenoscopy & Screening Colonoscopy - Sergio Epstein MD Date/Time: 06/15/21 08:05 Surgeon: Sergio Epstein MD Pre Op Diagnosis: esophagitis, gastritis Patient Data Age: 60 Gender: F Height: 1.65 m Weight: 71.4 kg Last Vital Signs Temp 36.1 C L 06/15/21 07:48 Pulse 77 06/15/21 07:48 Resp 16 06/15/21 07:48 BP 124/79 06/15/21 07:48 Pulse Ox 99 06/15/21 07:48 Allergies Allergy/AdvReac Type Severity Reaction Status Date / Time amoxicillin Allergy Mild RASH Verified 06/15/21 07:45 Penicillins Allergy Unknown Rash Verified 06/15/21 07:45 Home Medications Medication Instructions Recorded Confirmed Type lisinopril-hydrochlorothiazide 1 tablet PO DAILY 04/10/21 06/05/21 History metformin 500 mg PO BID 04/10/21 06/05/21 History oxycodone 5 mg PO Q6H PRN 04/10/21 06/05/21 History oxycodone myristate [Xtampza ER] 13.5 mg PO BID 04/10/21 06/05/21 History pregabalin 200 mg PO BID 04/10/21 06/05/21 History bupropion HCl 150 mg PO DAILY 06/05/21 06/05/21 History ergocalciferol (vitamin D2) 1,250 mcg PO WEEKLY 06/05/21 06/05/21 History ferrous sulfate 325 mg PO DAILY 06/05/21 06/05/21 History pantoprazole 40 mg PO BID 06/05/21 06/05/21 History rosuvastatin 10 mg PO DAILY 06/05/21 06/05/21 History Laboratory Tests 06/15/21 08:00 POC Capillary Glucose 104 mg/dl mg/dl (65-105) Patient hx anesthesia problems: none Family hx anesthesia problems: none PMFSH Past Medical History Medical History (Updated 06/15/21 @ 08:06 by Yoav Ness MD) Chronic jaw pain Chronic narcotic use Diabetic peripheral neuropathy GERD (gastroesophageal reflux disease) Hyperlipidemia Hypertension Orthostatic hypotension Osteoarthritis PUD (peptic ulcer disease) Type 2 diabetes mellitus Surgical History Surgical History History of 2 sections History of mandibular surgery Left job replacement surgery. Family History Family History Son Type 1 diabetes Mother Coronary artery disease Father Parkinsons disease Pacemaker Social History Social History Social History: The patient is and lives in her own home in [place]. 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 Smokes approximately 1/2 a pack of cigarettes a day. She drinks alcohol very rarely and in moderation. No illicit substance use. She designates her daughter, Mona Dumont, as her surrogate decision maker and she wishes to be a full code. Smoking packs per day: 0.5 Smoking cigarettes per day: 10.0 Years smoked: 43 Smoking pack-years: 21.50 Smoking status: Former smoker Tobacco type: cigarettes Living arrangements: alone Spiritual care concerns: No Anes - Eval Final PreProcedure Day of Procedure 06/15/21 08:05 Patient weight: overweight Heart: regular rate and rhythm Lungs: clear to auscultation and normal air movement Airway: Mallampati scale class II Neurological: alert and oriented Last oral intake: >/= 8 hours ASA classification: III Emergent: no Anesthetic plan: proceed Anesthesia type and monitoring: general GIVS Informed Consent: The patient's anesthetic plan and its attendant risks and benefits were discussed with the patient/family/POA. Questions were solicited and answers provided to the satisfaction of the patient/family/POA.
--- NOTE | 2021-06-15 08:36 | PM.HPGS ---
History of Present Illness History of Present Illness Consent: Risks, benefits, and alternatives have been discussed and questions answered. Patient agrees to proceed with procedure. Chief complaint: esophagitis, gastritis Narrative: Baylee Lacey is a 60 year old female with erosive esophagitis and PUD, symptomatic anemia 04/2021 much better with protonix daily. She never had a colonoscopy. Review of Systems Constitutional: Constitutional: Denies headache(s) and Denies weakness Eyes: Eyes: Denies blurry vision ENT: Reports Normal hearing present, Denies headache(s) and Denies neck pain Cardiovascular: Cardiovascular: Denies chest pain and Denies dyspnea Respiratory: Respiratory: Denies dyspnea Gastrointestinal: Gastrointestinal: Reports no additional gastrointestinal complaints Genitourinary: Genitourinary: Denies dysuria Musculoskeletal: Musculoskeletal: Denies neck pain Integumentary/Breasts: Skin/Breast: Denies dry skin Neurologic: Reports Normal hearing present, Denies headache(s) and Denies weakness Psychiatric: Psychiatric: Denies anxiety Endocrine: Endocrine: Denies change in body appearance Hematologic/Lymphatic: Hematologic/Lymphatic: Denies easy bleeding Allergic/Immunologic: Allergic/Immunologic: Denies urticaria [facility] [place] Past Medical History Medical History (Updated 06/15/21 @ 08:37 by Sergio Epstein MD) Chronic jaw pain Chronic narcotic use Colon cancer screening Diabetic peripheral neuropathy GERD (gastroesophageal reflux disease) Hyperlipidemia Hypertension Orthostatic hypotension Osteoarthritis PUD (peptic ulcer disease) Type 2 diabetes mellitus Surgical History Surgical History History of 2 sections History of mandibular surgery Left job replacement surgery. Family History Family History Son Type 1 diabetes Mother Coronary artery disease Father Parkinsons disease Pacemaker Social History Social History Social History: The patient is and lives in her own home in [place]. 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 Smokes approximately 1/2 a pack of cigarettes a day. She drinks alcohol very rarely and in moderation. No illicit substance use. She designates her daughter, Mona Dumont, as her surrogate decision maker and she wishes to be a full code. Smoking packs per day: 0.5 Smoking cigarettes per day: 10.0 Years smoked: 43 Smoking pack-years: 21.50 Smoking status: Former smoker Tobacco type: cigarettes Living arrangements: alone Spiritual care concerns: No Meds Home Medications and Allergies Home Medications Medication Instructions Recorded Confirmed Type lisinopril-hydrochlorothiazide 1 tablet PO DAILY 04/10/21 06/05/21 History metformin 500 mg PO BID 04/10/21 06/05/21 History oxycodone 5 mg PO Q6H PRN 04/10/21 06/05/21 History oxycodone myristate [Xtampza ER] 13.5 mg PO BID 04/10/21 06/05/21 History pregabalin 200 mg PO BID 04/10/21 06/05/21 History bupropion HCl 150 mg PO DAILY 06/05/21 06/05/21 History ergocalciferol (vitamin D2) 1,250 mcg PO WEEKLY 06/05/21 06/05/21 History ferrous sulfate 325 mg PO DAILY 06/05/21 06/05/21 History pantoprazole 40 mg PO BID 06/05/21 06/05/21 History rosuvastatin 10 mg PO DAILY 06/05/21 06/05/21 History Allergies Allergy/AdvReac Type Severity Reaction Status Date / Time amoxicillin Allergy Mild RASH Verified 06/15/21 07:45 Penicillins Allergy Unknown Rash Verified 06/15/21 07:45 Vital Signs Vital Signs - 24 hr 06/15/21 07:48 Temperature 97 F L Pulse Rate 77 Respiratory Rate 16 Blood Pressure 124/79 Pulse Oximetry 99 Exam Const: General: comfortable and no acute distress HENMT: General nose exam: Normal nares present Eyes: General: appearance normal, both eyes and all related structures Neck: Nec
[2021-06-15] MEDS: BENZOCAINE (*SP) 60 ML SPRAY CAN (HURRICAINE) 1 SPRAY MUCOUS MEM (08:39)
[2021-06-15 09:14] VITALS: BP 97/61; PULSE 65; RESP 19; O2SAT 100
[2021-06-15 09:24] VITALS: BP 125/78; PULSE 61; RESP 17; O2SAT 100
[2021-06-15 09:34] VITALS: BP 132/84; PULSE 63; RESP 15; O2SAT 100
== END 2021-06-15 09:43 | disposition home or self-care (01) ==
PROVIDERS: PCP Physician Assistant; Visit Provider Internal Medicine Gastroenterology
PROC: 0DJ08ZZ Inspection of Upper Intestinal Tract, Via Natural or Artificial Opening Endoscopic (ICD-10-PCS; CPT 43235; principal; 2021-06-15 08:30)
DX: Z12.11 Encounter for screening for malignant neoplasm of colon (principal); K64.8 Other hemorrhoids; K63.5 Polyp of colon; K29.80 Duodenitis without bleeding; K29.70 Gastritis, unspecified, without bleeding; Z87.11 Personal history of peptic ulcer disease; K21.9 Gastro-esophageal reflux disease without esophagitis; E78.5 Hyperlipidemia, unspecified; I10 Essential (primary) hypertension; I95.1 Orthostatic hypotension; Z87.898 Personal history of other specified conditions; E11.42 Type 2 diabetes mellitus with diabetic polyneuropathy; Z79.84 Long term (current) use of oral hypoglycemic drugs; Z87.891 Personal history of nicotine dependence
CPT/HCPCS: 45385; 43235; 82948; 88305; J2704; J7120

== ENCOUNTER 2022-09-03 09:16 | Outpatient (CLI) | payer OTHER, SELFPAY ==
[2022-09-09 11:08] LABS: Kit Draw Collected
== END 2022-09-03 09:17 | disposition home or self-care (01) ==
LOC: ANHGOSHLAB 09:19
PROVIDERS: PCP Family Medicine; Visit Provider Nurse Practitioner Family
DX: E03.9 Hypothyroidism, unspecified (principal); E55.9 Vitamin D deficiency, unspecified; E78.5 Hyperlipidemia, unspecified; I10 Essential (primary) hypertension
CPT/HCPCS: 36415

== ENCOUNTER 2023-07-16 08:10 | Outpatient (CLI) | payer OTHER, SELFPAY ==
[2023-07-16 17:53] LABS: Basophils Percent Auto 0.9 % (0.2-1.2); Eosinophils Absolute Auto 0.2 K/mm3 (0-0.3); Eosinophils Percent Auto 4.7 % (0-4.4); Hematocrit 41.5 % (37.0-47.0); Immature Granulocyte Absolute 0.01 K/mm3 (0.00-0.031); Immature Granulocyte Percent A 0.2 % (0-0.5); Lymphocytes Absolute Auto 1.89 K/mm3 (0.9-3.2); Mean Corpuscular HGB Conc 31.3 g/dl (32-36); Mean Corpuscular Hemoglobin 30.2 pg (26-34); Mean Corpuscular Volume 96.5 fl (80-100); Mean Platelet Volume 9.4 fl (7.4-10.4); Monocytes Absolute Auto 0.3 K/mm3 (0.1-0.6); Monocytes Percent Auto 5.8 % (2.6-8.5); Neutrophils Absolute Auto 1.9 K/mm3 (1.3-6.7); Neutrophils Percent Auto 44.4 % (45.5-73.1); Platelet Count Result 215 k/mm3 (150-375); Red Cell Distribution Width 13.1 % (11.5-14.5); White Blood Count 4.3 K/mm3 (4.5-10.0)
[2023-07-16 20:04] LABS: Alanine Aminotransferase 58 U/L (6-35); Albumin Level 4.1 g/dL (3.5-5.1); Alkaline Phosphatase 53 U/L (38-126); Anion Gap 7 mmol/L (8-16); Aspartate Amino Transferase 68 U/L (14-36); Bilirubin,Total 0.4 mg/dL (0.2-1.3); Blood Urea Nitrogen 14 mg/dL (7-17); Calcium 9.2 mg/dL (8.4-10.2); Carbon Dioxide 32 mmol/L (22-30); Chloride 101 mmol/L (98-107); Estimated Glomerular Filt Rate > 60; Glucose 177 mg/dL (65-110); Potassium 3.9 mmol/L (3.4-5.0); Sodium 140 mmol/L (137-145)
[2023-07-19 10:07] LABS: Vitamin D 1,25 (OH)2 Total 38 pg/mL (18-72); Vitamin D2 1,25 (OH)2 <8 pg/mL; Vitamin D3 1,25 (OH)2 38 pg/mL
== END 2023-07-16 08:11 | disposition home or self-care (01) ==
LOC: ANHGOSHLAB 08:11
PROVIDERS: PCP Family Medicine; Visit Provider Nurse Practitioner Family
DX: E55.9 Vitamin D deficiency, unspecified (principal); I10 Essential (primary) hypertension
CPT/HCPCS: 36415; 80053; 82652; 85025

== ENCOUNTER 2023-07-21 16:48 | Outpatient (CLI) | payer OTHER, SELFPAY ==
[2023-07-21 18:57] LABS: Alanine Aminotransferase 58 U/L (6-35); Albumin Level 4.5 g/dL (3.5-5.1); Alkaline Phosphatase 67 U/L (38-126); Anion Gap 10 mmol/L (8-16); Aspartate Amino Transferase 47 U/L (14-36); Bilirubin,Total 0.5 mg/dL (0.2-1.3); Blood Urea Nitrogen 15 mg/dL (7-17); Calcium 9.3 mg/dL (8.4-10.2); Carbon Dioxide 28 mmol/L (22-30); Chloride 100 mmol/L (98-107); Estimated Glomerular Filt Rate > 60; Glucose 139 mg/dL (65-110); Potassium 3.8 mmol/L (3.4-5.0); Sodium 138 mmol/L (137-145)
[2023-07-21 19:27] LABS: Hepatitis B Surface Antigen Negative (Negative)
[2023-07-21 19:33] LABS: HAV RESULT Negative (Negative); Hepatitis B Core IgM Result Negative (Negative)
[2023-07-21 19:45] LABS: Hepatitis C Virus Antibody Negative (Negative)
== END 2023-07-21 16:49 | disposition home or self-care (01) ==
LOC: ANHLAB 16:49
PROVIDERS: PCP Family Medicine; Visit Provider Nurse Practitioner Family
DX: R74.8 Abnormal levels of other serum enzymes (principal)
CPT/HCPCS: 36415; 80053; 80074

== ENCOUNTER 2024-01-21 08:51 | Outpatient (CLI) | payer OTHER, SELFPAY ==
[2024-01-21 11:29] LABS: Basophils Absolute Auto 0.1 K/mm3 (0.0-0.1); Basophils Percent Auto 1.2 % (0.2-1.2); Eosinophils Absolute Auto 0.2 K/mm3 (0-0.3); Eosinophils Percent Auto 3.5 % (0-4.4); Hematocrit 42.6 % (37.0-47.0); Hemoglobin 14.1 g/dL (12.0-15.0); Immature Granulocyte Absolute 0.02 K/mm3 (0.00-0.031); Immature Granulocyte Percent A 0.4 % (0-0.5); Lymphocytes Absolute Auto 2.04 K/mm3 (0.9-3.2); Lymphocytes Percent Auto 39.2 % (18.3-44.2); Mean Corpuscular HGB Conc 33.1 g/dl (32-36); Mean Corpuscular Hemoglobin 30.5 pg (26-34); Mean Platelet Volume 9.4 fl (7.4-10.4); Monocytes Absolute Auto 0.3 K/mm3 (0.1-0.6); Monocytes Percent Auto 5.2 % (2.6-8.5); Neutrophils Absolute Auto 2.6 K/mm3 (1.3-6.7); Neutrophils Percent Auto 50.5 % (45.5-73.1); Platelet Count Result 232 k/mm3 (150-375); Red Blood Count 4.63 M/mm3 (4.2-5.4); Red Cell Distribution Width 12.4 % (11.5-14.5); White Blood Count 5.2 K/mm3 (4.5-10.0)
[2024-01-21 12:04] LABS: T4 Thyroxine 7.23 ug/dL (5.53-11.0)
[2024-01-21 12:07] LABS: Rheumatoid Factor < 12.0 IU/ML (<12)
[2024-01-21 12:09] LABS: Alanine Aminotransferase 65 U/L (6-35); Albumin Level 4.7 g/dL (3.5-5.1); Alkaline Phosphatase 75 U/L (38-126); Anion Gap 10 mmol/L (8-16); Aspartate Amino Transferase 68 U/L (14-36); Bilirubin,Total 0.6 mg/dL (0.2-1.3); Blood Urea Nitrogen 22 mg/dL (7-17); Calcium 9.9 mg/dL (8.4-10.2); Carbon Dioxide 26 mmol/L (22-30); Chloride 105 mmol/L (98-107); Estimated Glomerular Filt Rate > 60; Glucose 162 mg/dL (65-110); Magnesium 1.9 mg/dL (1.6-2.3); Potassium 3.7 mmol/L (3.4-5.0); Sodium 141 mmol/L (137-145)
[2024-01-21 12:17] LABS: Vitamin D 25 Hydroxy 45.3 ng/mL
[2024-01-21 12:30] LABS: Hemoglobin A1C 7.2 % (<5.7)
[2024-01-21 12:38] LABS: Vitamin B12 > 1000.0 pg/mL (239-931)
[2024-01-21 13:23] LABS: Erythrocyte Sedimentation Rate 15 mm/hr (0-20)
== END 2024-01-21 08:52 | disposition home or self-care (01) ==
LOC: ANHGOSHLAB 08:52
PROVIDERS: PCP Family Medicine; Visit Provider Nurse Practitioner Family
DX: Z00.00 Encounter for general adult medical examination without abnormal findings (principal); G24.9 Dystonia, unspecified; R26.81 Unsteadiness on feet; E55.9 Vitamin D deficiency, unspecified; R74.8 Abnormal levels of other serum enzymes; E78.5 Hyperlipidemia, unspecified; E11.42 Type 2 diabetes mellitus with diabetic polyneuropathy; Z13.89 Encounter for screening for other disorder; E53.8 Deficiency of other specified B group vitamins; Z13.29 Encounter for screening for other suspected endocrine disorder; Z82.0 Family history of epilepsy and other diseases of the nervous system
CPT/HCPCS: 36415; 80053; 82306; 82607; 83036; 83735; 84436; 84443; 85025; 85652; 86430

== ENCOUNTER 2024-02-03 09:10 | Outpatient (CLI) | payer OTHER, SELFPAY ==
--- NOTE | ~2024-02-03 | CT_ITS ---
EXAMINATION: CTA brain carotid DATE: 02/03/2024 10:14 INDICATION: Dystonia, unspecified. TECHNIQUE: Computed tomographic angiography (CTA) of the head was performed without and with 100 mL O mnipaque-350 intravenous contrast. CTA of the neck was performed with intravenous contrast. Automated exposure control and iterative reconstruction technique were employed. The dose-length product was 1 625.89 mGy-cm. Maximum intensity projection and volume rendered 3D-reconstructions were created by paul mccoy technologist on a separate workstation. COMPARISON: Brain MRI 02/03/2024, head CT 06/17/2008 FINDINGS: HEAD CTA: There is no intracranial hemorrhage, acute infarction, or abnormal intracranial mass lesion . The ventricles are normal in size. The paranasal sinuses are clear. The orbits are normal. The mast oid air cells are normal. There are changes of left temporomandibular joint replacement. The vertebra l arteries are codominant. There is no significant stenosis of basilar artery or the posterior cerebr al arteries. There is no significant stenosis of the intracranial internal carotid arteries or anteri or or middle cerebral arteries. Anterior communicating artery is normal. The posterior communicating arteries are normal. There is no aneurysm. NECK CTA: There are no pathologically enlarged lymph nodes. There is no significant stenosis of the v ertebral arteries. There is plaque in the proximal internal carotid arteries. There is 0% stenosis of the proximal right internal carotid artery relative to normal distal artery lumen diameter (NASCET c riteria). There is 15% stenosis of the proximal left internal carotid artery relative to normal dista l artery lumen diameter. There is mild cervical spondylosis. IMPRESSION: 1. Normal brain. 2. No aneurysm or significant intracranial arterial stenosis. 3. 0% stenosis of the proximal right internal carotid artery relative to normal distal artery lumen d iameter (NASCET criteria). 4. 15% stenosis of the proximal left internal carotid artery relative to normal distal artery lumen d iameter. Reviewed, dictated and finalized at location E. IMPRESSION: 1. Normal brain. 2. No aneurysm or significant intracranial arterial stenosis. 3. 0% stenosis of the proximal right internal carotid artery relative to normal distal artery lumen diameter (NASCET criteria). 4. 15% stenosis of the proximal left internal carotid artery relative to normal distal artery lumen diameter.
--- NOTE | ~2024-02-03 | MR_ITS ---
EXAMINATION: MR brain/brain stem wo con DATE: 02/03/2024 09:56 INDICATION: Dystonia, unspecified. TECHNIQUE: Magnetic resonance imaging (MRI) of the brain and brainstem was performed without intraven ous contrast. COMPARISON: Head CT 02/03/2024 FINDINGS: There is no intracranial hemorrhage, acute infarction, or abnormal intracranial mass lesion . The ventricles are normal in size. The orbits are normal. The paranasal sinuses are clear. There is a trace right mastoid effusion. IMPRESSION: 1. Normal brain. Reviewed, dictated and finalized at location E. IMPRESSION: 1. Normal brain.
== END 2024-02-03 09:11 ==
PROVIDERS: PCP Family Medicine; Visit Provider Nurse Practitioner Family
DX: R42 Dizziness and giddiness (principal); R26.81 Unsteadiness on feet; G44.209 Tension-type headache, unspecified, not intractable; Z82.0 Family history of epilepsy and other diseases of the nervous system; G24.9 Dystonia, unspecified; I65.22 Occlusion and stenosis of left carotid artery
CPT/HCPCS: 70496; 70498; 70551; Q9967

== ENCOUNTER 2024-08-10 12:48 | Outpatient (CLI) | payer OTHER, SELFPAY ==
[2024-08-10 14:22] LABS: Erythrocyte Sedimentation Rate 13 mm/hr (0-20)
[2024-08-10 14:29] LABS: CRP < 0.5 mg/dL (<1.0)
[2024-08-12 21:48] LABS: Vitamin B6 31.5 ng/mL (2.1-21.7)
[2024-08-13 01:08] LABS: Vitamin B1 33 nmol/L (8-30)
== END 2024-08-10 12:49 | disposition home or self-care (01) ==
LOC: ANHGOSHLAB 12:49
PROVIDERS: PCP Nurse Practitioner Family; Visit Provider Nurse Practitioner Family
DX: E03.9 Hypothyroidism, unspecified (principal); R26.81 Unsteadiness on feet; G62.9 Polyneuropathy, unspecified; G25.0 Essential tremor; R21 Rash and other nonspecific skin eruption; M25.60 Stiffness of unspecified joint, not elsewhere classified
CPT/HCPCS: 36415; 82607; 84207; 84425; 84443; 85652; 86038; 86039; 86140